=== PATIENT | male | born 1950 ===

== ENCOUNTER 2022-03-08 16:09 | Emergency (ER) | payer MEDICARE, OTHER, SELFPAY ==
[2022-03-08 16:23] VITALS: BP 177/85; PULSE 69; RESP 16; TEMP 36.6; O2SAT 98; BMI 29.2
--- NOTE | 2022-03-08 16:30 | DI.RAD.S_ITS ---
PROCEDURE: XR CHEST 1V INDICATIONS: chest pain TECHNIQUE: One view of the chest was acquired. COMPARISON: None. FINDINGS: Surgical changes and devices: None. Lungs and pleura: Lungs are clear. No pleural effusions or pneumothorax. Mediastinum: Mediastinal contours appear normal. Heart size is normal. Bones and chest wall: No suspicious bony lesions. Overlying soft tissues appear unremarkable. IMPRESSION: No acute cardiopulmonary findings. Dictated by: Becky Krueger M.D. on 03/08/2022 at 16:54 Approved by: Becky Krueger M.D. on 03/08/2022 at 16:54
[2022-03-08 17:48] LABS: Add Manual Diff / Slide Review NO; Basophils Absolute Auto 0 /uL (0-100); Basophils Percent Auto 0.6 % (0-2); Eosinophils Absolute Auto 300 /uL (0-450); Eosinophils Percent Auto 4.5 % (2-4); Hematocrit 42.1 % (41-53); Hemoglobin 14.2 g/dL (13.5-17.5); Lymphocytes Absolute Auto 2300 /uL (1100-4500); Lymphocytes Percent Auto 37.1 % (25-40); Mean Corpuscular HGB Conc 33.7 % (30-36); Mean Corpuscular Hemoglobin 30.8 PG (26-34); Mean Corpuscular Volume 91.4 fL (80-100); Monocytes Absolute Auto 600 /uL (0-900); Monocytes Percent Auto 9.3 % (3-14); Neutrophils Absolute Auto 3000 /uL (1500-7000); Neutrophils Percent Auto 48.5 % (50-75); Platelet Count 137 X10^3/uL (150-400); Red Cell Distribution Width 12.7 % (11.6-14.8); White Blood Cell Count 6.1 X10^3/uL (4.5-11.0)
[2022-03-08 17:54] LABS: Alanine Aminotransferase 23 IU/L (<50); Albumin 4.3 g/dL (3.5-5.0); Albumin Globulin Ratio 1.2 (1.0-2.8); Alkaline Phosphatase 56 U/L (38-126); Aspartate Aminotransferase 23 IU/L (17-59); BUN Creatinine Ratio 20.4 (6-22); Bilirubin Total 0.5 mg/dL (0.2-1.3); Blood Urea Nitrogen 20 mg/dL (9-20); Calcium 8.5 mg/dL (8.4-10.2); Carbon Dioxide 26 mmol/L (22-32); Chloride 106 mmol/L (98-107); Creatine Kinase 118 U/L (55-170); Estimated Glomerular Filt Rate > 60 mL/min (>60); Globulin 3.5 g/dL (1.7-4.1); Glucose 101 mg/dL (80-110); HEMOLYSIS < 15 (0-50); Lipase 55 U/L (23-300); Magnesium 2.2 mg/dL (1.6-2.3); Potassium 3.9 mmol/L (3.4-5.1); Sodium 140 mmol/L (137-145); Total Protein 7.8 g/dL (6.3-8.2)
[2022-03-08 18:05] LABS: Troponin I < 0.012 ng/mL (0.01-0.034)
[2022-03-08 18:09] LABS: CKMB % Relative Index 0.4 % (1.5-5.0); Creatine Kinase MB 0.49 ng/mL (<2.37)
[2022-03-08 18:15] LABS: Prothrombin Time 11.7 SECONDS (10.1-12.7)
[2022-03-08 18:18] LABS: PTT Partial Thromboplastin Tim 37 SECONDS (26-36)
[2022-03-08 22:36] VITALS: PULSE 79; RESP 18; O2SAT 98
[2022-03-08 22:37] VITALS: BP 159/74; PULSE 75; RESP 18; O2SAT 98
[2022-03-08 23:00] VITALS: PULSE 74; RESP 16; O2SAT 96
[2022-03-08 23:01] VITALS: BP 153/61; PULSE 75; RESP 22; O2SAT 97
[2022-03-08 23:13] LABS: Troponin I < 0.012 ng/mL (0.01-0.034)
[2022-03-08 23:30] VITALS: PULSE 86; RESP 27; O2SAT 99
--- NOTE | 2022-03-08 23:31 | ED.CHESTPAIN ---
HPI - Chest Pain General Chief Complaint: Chest Pain Stated Complaint: Shoulder pain, Dizziness, Upper ABD pain Time Seen by Provider: 03/08/22 22:44 Source: patient Mode of arrival: Ambulatory Limitations: no limitations History of Present Illness HPI narrative: Patient is a 71-year-old male who 2 days ago had an episode where he had epigastric abdominal discomfort and then discomfort up in his neck/between his shoulder blades. States it lasted approximately a day and then resolved. He also states that he had episodes where he became dizzy. He describes it as vertigo. He states it was worse when he laid down. Did not seem to be associated with his abdominal discomfort nor back discomfort. He is still having some of the dizziness but it is much better than what it was prior. He states that the abdominal discomfort back discomfort were not worse with palpation or eating or movement. He did not tried anything for the symptoms prior to arrival. Related Data Previous Rx's Medication Instructions Recorded meclizine 25 mg tablet 25 mg PO BID PRN dizziness #14 tabs 03/08/22 Allergies Allergy/AdvReac Type Severity Reaction Status Date / Time No Known Drug Allergies Allergy Verified 03/08/22 16:30 Review of Systems Constitutional Constitutional: Reports system reviewed and no additional complaints, except as documented ENT Ears, Nose, Mouth, and Throat: Reports system reviewed and no additional complaints, except as documented Cardiovascular Cardiovascular: Reports system reviewed and no additional complaints, except as documented Respiratory Respiratory: Reports system reviewed and no additional complaints, except as documented Gastrointestinal Gastrointestinal: Reports system reviewed and no additional complaints, except as documented Integumentary/Breasts Skin/Breast: Reports system reviewed and no additional complaints, except as documented Neurologic Neurologic: Reports system reviewed and no additional complaints, except as documented Hematologic/Lymphatic On Anticoagulants: No Patient History Social History Smoking Status: Never smoker Smoking Status: Never smoker Substance Use Type: does not use Exam Initial Vital Signs Initial Vital Signs: Vital Signs Temperature 97.8 F 03/08/22 16:23 Pulse Rate 69 03/08/22 16:23 Respiratory Rate 16 03/08/22 16:23 Blood Pressure 177/85 H 03/08/22 16:23 Pulse Oximetry 98 03/08/22 16:23 Oxygen Delivery Method 03/08/22 16:23 Const General: cooperative, comfortable and No ill appearing HENGA Head: normal to inspection Resp Effort & Inspection: normal respiratory effort Auscultation: clear to auscultation bilaterally Cardio Rate: regular rate Rhythm: regular rhythm GI Inspection: normal to inspection and non-distended Palpation: soft and No tender Skin General: no rashes or lesions noted Neuro General: patient alert, patient awake, patient oriented x3 and moves all extremities Extrem General: normal to inspection Psych Appearance: grossly normal and well kempt Course Orders Ordered: ED Orders 03/08/22 21:53 EKG-12 Lead Stat 03/08/22 22:40 Troponin I Stat Discontinued Medications Aspirin (Aspirin 81 Mg Chew Tab) 324 mg PO NOW ONE Stop: 03/08/22 16:31 Last Admin: 03/08/22 23:32 Dose: Not Given Documented By: HANH Vital Signs Vital signs: Vital Signs - 8 hr 03/08/22 22:36 03/08/22 22:37 03/08/22 22:37 Pulse Rate 79 75 Respiratory Rate 18 18 Blood Pressure 159/74 H Pulse Oximetry 98 98 Oxygen Delivery Method Room Air 03/08/22 23:00 03/08/22 23:01 03/08/22 23:01 Pulse Rate 74 75 Respiratory Rate 16 22 Blood Pressure 153/61 H Pulse Oximetry 96 97 Oxygen Delivery Method 03/08/22 23:30 Pulse Rate 86 Respiratory Rate 27 H Blood Pressure Pulse Oximetry 99 Oxygen Delivery Method MDM - Chest Pain Lab Data Attestation: I reviewed the patient's lab results. Result diagrams: 03/08/22 17:20 03/08/22 17:20 Labs: Lab Results 03/08/22 03/08/22 03/08/22 Range/Units 17:20 17:20 17:20 WBC 6.1 (4.5-11.0) X10^3/uL RBC 4.60 (4.5-5.9) X10^6/uL Hgb 14.2 (13.5-17.5) g/dL Hct 42.1 (41-53) % MCV 91.4 (80-100) fL MCH 30.8 (26-34) PG MCHC 33.7 (30-36) % RDW 12.7 (11.6-14.8) % Plt Count 137 L (150-400) X10^3/uL Neut % (Auto) 48.5 L (50-75) % Lymph % (Auto) 37.1 (25-40) % [place] % (Auto) 9.3 (3-14) % Eos % (Auto) 4.5 H (2-4) % Baso % (Auto) 0.6 (0-2) % Neut # (Auto) 3000 (1905-6343) /uL Lymph # (Auto) 2300 (9429-1636) /uL [place] # (Auto) 600 (0-900) /uL Eos # (Auto) 300 (0-450) /uL Baso # (Auto) 0 (0-100) /uL PT 11.7 (10.1-12.7) SECONDS INR 1.0 (0.9-1.3) APTT 37 H (26-36) SECONDS Sodium 140 (137-145) mmol/L Potassium 3.9 (3.4-5.1) mmol/L Chloride 106 (98-107) mmol/L Carbon Dioxide 26 (22-32) mmol/L BUN 20 (9-20) mg/dL Creatinine 0.98 (0.66-1.25) mg/dL Estimated GFR > 60 (>60) mL/min BUN/Creatinine Ratio 20.4 (6-22) Glucose 101 (80-110) mg/dL Calcium 8.5 (8.4-10.2) mg/dL Magnesium 2.2 (1.6-2.3) mg/dL Total Bilirubin 0.5 (0.2-1.3) mg/dL AST 23 (17-59) IU/L ALT 23 (<50) IU/L Alkaline Phosphatase 56 (38-126) U/L Total Creatine Kinase 118 (55-170) U/L CK-MB (CK-2) 0.49 (<2.37) ng/mL CK-MB (CK-2) Rel Index 0.4 L (1.5-5.0) % Troponin I < 0.012 (0.01-0.034) ng/mL Total Protein 7.8 (6.3-8.2) g/dL Albumin 4.3 (3.5-5.0) g/dL Globulin 3.5 (1.7-4.1) g/dL Albumin/Globulin Ratio 1.2 (1.0-2.8) Lipase 55 (23-300) U/L 03/08/22 Range/Units 22:40 WBC (4.5-11.0) X10^3/uL RBC (4.5-5.9) X10^6/uL Hgb (13.5-17.5) g/dL Hct (41-53) % MCV (80-100) fL MCH (26-34) PG MCHC (30-36) % RDW (11.6-14.8) % Plt Count (150-400) X10^3/uL Neut % (Auto) (50-75) % Lymph % (Auto) (25-40) % [place] % (Auto) (3-14) % Eos % (Auto) (2-4) % Baso % (Auto) (0-2) % Neut # (Auto) (9272-9388) /uL Lymph # (Auto) (5881-3100) /uL [place] # (Auto) (0-900) /uL Eos # (Auto) (0-450) /uL Baso # (Auto) (0-100) /uL PT (10.1-12.7) SECONDS INR (0.9-1.3) APTT (26-36) SECONDS Sodium (137-145) mmol/L Potassium (3.4-5.1) mmol/L Chloride (98-107) mmol/L Carbon Dioxide (22-32) mmol/L BUN (9-20) mg/dL Creatinine (0.66-1.25) mg/dL Estimated GFR (>60) mL/min BUN/Creatinine Ratio (6-22) Glucose (80-110) mg/dL Calcium (8.4-10.2) mg/dL Magnesium (1.6-2.3) mg/dL Total Bilirubin (0.2-1.3) mg/dL AST (17-59) IU/L ALT (<50) IU/L Alkaline Phosphatase (38-126) U/L Total Creatine Kinase (55-170) U/L CK-MB (CK-2) (<2.37) ng/mL CK-MB (CK-2) Rel Index (1.5-5.0) % Troponin I < 0.012 (0.01-0.034) ng/mL Total Protein (6.3-8.2) g/dL Albumin (3.5-5.0) g/dL Globulin (1.7-4.1) g/dL Albumin/Globulin Ratio (1.0-2.8) Lipase (23-300) U/L Imaging Data Chest x-ray: Radiologist's Impression: [address] [address] XRay Report Signed Patient: Kemar Tuttle MR#: [id number] : 1950 Acct:[id number] Age/Sex: 71 / M Date of Service: 03/08/22 Loc: ED Accession Number: [id number] ?? Procedure: XR chest 1V Ordering Provider: Betty Boyer D.O. PROCEDURE:? XR CHEST 1V ? INDICATIONS:? chest pain ? TECHNIQUE:? One view of the chest was acquired.? ? COMPARISON:? None. ? FINDINGS:? ? Surgical changes and devices:? None.? ? Lungs and pleura:? Lungs are clear.? No pleural effusions or pneumothorax.? ? Mediastinum:? Mediastinal contours appear normal.? Heart size is normal.? ? Bones and chest wall:? No suspicious bony lesions.? Overlying soft tissues appear unremarkable.? ? IMPRESSION:? No acute cardiopulmonary findings. ? ? Dictated by: Becky Krueegr M.D. on 03/08/2022 at 16:54 ? ? Approved by: Becky Krueger M.D. on 03/08/2022 at 16:54?? ECG Data Attestation: I personally reviewed and interpreted this ECG as follows: Interpretation: Presentation EKG Sinus rhythm Ventricular rate 80 Frequent PVCs Normal QRS No ST T wave changes Repeat EKG Unchanged from prior MDM Narrative Medical decision making narrative: Patient has no abdominal discomfort nor back discomfort and has not had any symptoms for greater than 24 hours. His labs are unremarkable. EKG is unremarkable. Troponins are negative x2. He states that he is having some symptoms with vertigo but it is actually much improved than what it was 2 days ago. I feel that his symptoms are less likely ACS given his presentation given his normal labs and lack of any symptoms currently we will hold on any radiologic studies for now. No fevers. Will send home with meclizine to try to help with the vertigo. Was instructed to contact his primary doctor for follow-up. He was given return precautions. He expressed understanding and agreement. Discharge Plan Departure Patient Disposition: Home Clinical Impression: Vertigo, Abdominal pain, Asymptomatic PVCs Instructions: DI for Vertigo Activity Restrictions/Additional Instructions: Recommend that you contact your primary doctor for follow-up. A prescription for medicine to try to help with the vertigo was sent to the pharmacy on the [facility]. Please take it as needed. Return to the emergency department for new or worsening symptoms. Prescriptions: New meclizine 25 mg tablet 25 mg PO BID PRN (Reason: dizziness) Qty: 14 0RF Stand Alone Forms: Patient Portal/API
== END 2022-03-08 23:47 | disposition home or self-care (01) ==
PROVIDERS: Emergency Medicine; Emergency Provider Emergency Medicine
DX: I49.3 Ventricular premature depolarization (principal); R10.13 Epigastric pain; R42 Dizziness and giddiness; R07.9 Chest pain, unspecified; M54.2 Cervicalgia
CPT/HCPCS: 36415; 71045; 80053; 82550; 82553; 83690; 83735; 84484; 85025; 85610; 85730; 93005; 99284